=== PATIENT | male | born 1985 | race Caucasian/White ===

== ENCOUNTER 2019-08-31 16:47 | Emergency (ER) | payer OTHER ==
[~2019-08-31] VITALS: Ht 175.3 cm; Wt 70.3 kg
[2019-08-31] MEDS ORDERED: NEOSPORIN OINT. PKT 1 PACKET ONE (18:15)
[2019-08-31 18:17] VITALS: BP 99/50
== END 2019-08-31 18:54 | disposition home or self-care (01) ==
LOC: ED 18:21
DX: S30.0XXA Contusion of lower back and pelvis, initial encounter (principal); S50.812A Abrasion of left forearm, initial encounter; S60.512A Abrasion of left hand, initial encounter; S80.812A Abrasion, left lower leg, initial encounter; R00.1 Bradycardia, unspecified; W01.0XXA Fall on same level from slipping, tripping and stumbling without subsequent striking against object, initial encounter; Y93.89 Activity, other specified; Y92.488 Other paved roadways as the place of occurrence of the external cause; Y99.8 Other external cause status
CPT/HCPCS: 72220; 93005; 99283